=== PATIENT | male | born 2000 | race Caucasian/White ===

== ENCOUNTER → 2020-04-07 08:51 | Outpatient (BNVA) | payer OTHER, SELFPAY | PROVIDERS: Family Provider Nurse Practitioner Family; PCP Nurse Practitioner Family; Visit Provider Podiatrist Foot & Ankle Surgery | DX: M25.571 Pain in right ankle and joints of right foot (principal) | CPT/HCPCS: 73610 ==

== ENCOUNTER 2020-04-29 16:26 | Outpatient (CLI) | payer OTHER, SELFPAY ==
--- NOTE | 2020-04-29 16:35 | MR_ITS ---
WS: [id number] MRI RIGHT ANKLE NONCONTRAST TECHNIQUE: Sagittal proton density, sagittal STIR, axial proton density, axial T1, axial T2 fat sat, coronal proton density, coronal proton density fat sat, coronal T2 fat sat. CLINICAL INFORMATION: right ankel pain COMPARISON: None. FINDINGS: Normal ankle mortise. Normal medial and lateral malleolus. Talar dome is normal. No evidence of avasc ular necrosis. Normal bone marrow signal in the calcaneus. No acute avulsion fractures. Chronic avuls ion at the tip of the lateral malleolus. Distal Achilles is normal in appearance. Tenosynovitis involving the peroneal tendon sheath extending along the peroneus longus and brevis. Thickening involving the peroneal longus with increased signal consistent with tendinopathy and partial tear. Split tear involving the peroneal brevis. Extensor and flexor compartment tendons are otherwise normal.Normal navicular. Normal tarsal bones. S mall ankle joint effusion. ATF appears intact. MR/MR ankle RT wo con* [id number] IMPRESSION: 1. Normal ankle mortise. No acute fractures. Chronic avulsion at the tip of th e lateral malleolus. 2. Normal bone marrow signal in the talus and calcaneus. No avascular necrosis . 3. Partial tear with tendinopathy involving the peroneal longus. 4. Split tear involving the peroneal brevis with tenosynovitis involving the p eroneal tendon sheaths extending distally along the peroneal longus and brevis. 5. Distal Achilles appears normal. 6. ATF appears intact.
== END 2020-04-29 16:27 | disposition home or self-care (01) ==
PROVIDERS: PCP Nurse Practitioner Family; Visit Provider Podiatrist Foot & Ankle Surgery
DX: S96.811A Strain of other specified muscles and tendons at ankle and foot level, right foot, initial encounter (principal); X58.XXXA Exposure to other specified factors, initial encounter
CPT/HCPCS: 73721

== ENCOUNTER → 2021-08-30 14:50 | Outpatient (BNVA) | payer OTHER, SELFPAY | PROVIDERS: PCP Nurse Practitioner Family; Referring Provider Nurse Practitioner; Visit Provider Orthopaedic Surgery | DX: M54.9 Dorsalgia, unspecified (principal) | CPT/HCPCS: 72100 ==

== ENCOUNTER 2021-09-22 13:38 | Outpatient (CLI) | payer OTHER, SELFPAY ==
--- NOTE | 2021-09-22 14:00 | CT_ITS ---
WS: [id number] CT LUMBAR SPINE TECHNIQUE: Noncontrast CT of the lumbar spine with coronal and sagittal reformatted images. CLINICAL INFORMATION: back pain COMPARISON: None. DLP: 1317.[address] scans at [facility] use at least one of these dose optimization techniques: automated e xposure control; mA and/or kV adjustment per patient size (includes targeted exams where dose is matc hed to clinical indication); or iterative reconstruction. FINDINGS: Mild lumbar curve. No acute compression. Mild disc bulging L4-L5 and L5-S1. Bilateral pars defects L5 -S1. No significant anterolisthesis. L1-L2: Normal. L2-L3: Minimal annular bulging. Slight effacement of ventral thecal sac. Mild RIGHT foraminal narrowi ng. LEFT foramen is patent. L3-L4: Mild annular bulging. Slight effacement of ventral thecal sac. Mild facet arthropathy. Spinal canal and foramen are patent. L4-L5: Tiny shallow central protrusion with slight effacement of ventral thecal sac. Mild narrowing o f the subarticular recess bilaterally. LEFT eccentric disc bulging with mild LEFT foraminal narrowing . RIGHT foramen is patent. L5-S1: Tiny shallow disc protrusion. Spinal canal is patent. Foramen are patent. Bilateral pars defec ts. No significant anterolisthesis. Mild facet arthropathy. Adrenal glands are normal. Tiny riblet RIGHT L1. Visualized pelvic bony structures: Normal. Paravertebral soft tissues: Normal. CT/CT lumbar spine wo con* [id number] IMPRESSION: 1. Bilateral pars defects L5-S1. No significant anterolisthesis. Mild facet ar thropathy. 2. Tiny shallow central disc protrusion with slight effacement of ventral thec al sac. Mild LEFT L4-L5 foraminal narrowing. 3. Mild RIGHT L2-L3 foraminal narrowing.
== END 2021-09-22 13:39 | disposition home or self-care (01) ==
LOC: RAD 13:40
PROVIDERS: PCP Nurse Practitioner Family; Visit Provider Orthopaedic Surgery
DX: M54.9 Dorsalgia, unspecified (principal)
CPT/HCPCS: 72131

== ENCOUNTER 2021-10-21 08:46 | Outpatient (CLI) | payer OTHER, SELFPAY ==
--- NOTE | 2021-10-21 10:30 | NM_ITS ---
WS: [id number] NUCLEAR MEDICINE BONE SCAN Radiopharmaceutical: 22.3 Tc-99m MDP mCi IV Injection site antecubital Postinjection imaging delay: 1 hr CLINICAL INFORMATION: rule out pars fx COMPARISON: CT September 22, 2021 FINDINGS: Recent CT reviewed. Bilateral pars defects on the recent lumbar spine CT September 22, 2021. No significant anterolisthesis at that time. Bone lesions: Today's bone scan demonstrates no significant bony activity in the area of the L5-S1 pa rs defects. Normal activity in the lower lumbar spine and L5-S1. No suspicious areas of bony uptake. Soft tissue contours: Normal. Kidneys: Normal. Other findings: None. NM/NM bone scan whole body* [id number] IMPRESSION: No abnormal bone activity in the area of the L5-S1 pars defects. Normal activit y in the lower lumbar spine and L5-S1. No suspicious areas of bony uptake.
== END 2021-10-21 08:47 | disposition home or self-care (01) ==
LOC: RAD 08:50
PROVIDERS: PCP Nurse Practitioner Family; Visit Provider Physician Assistant
DX: M54.9 Dorsalgia, unspecified (principal)
CPT/HCPCS: 78306; A9561

== ENCOUNTER → 2022-04-11 16:28 | Outpatient (BNVA) | payer SELFPAY | PROVIDERS: PCP Nurse Practitioner Family; Visit Provider Nurse Practitioner Family | DX: J02.9 Acute pharyngitis, unspecified (principal); J06.9 Acute upper respiratory infection, unspecified | CPT/HCPCS: 87071; 87880 ==

== ENCOUNTER 2023-09-11 13:54 | Outpatient (CLI) | payer OTHER, SELFPAY ==
--- NOTE | 2023-09-11 14:01 | XR_ITS ---
WS: [id number] Exam: XR lumbar spine 2-3V* [id number] Date/Time of Exam: 09/11/2023 2:01 PM Reason For Exam: Back pain Comparison 08/30/2021. No fracture or dislocation noted. Disc spacer at L4-5. Pars interarticularis defect at L5 but no spon dylolisthesis. The remaining discs are preserved. Posterior elements are otherwise intact. Slight lev oscoliosis. XR/XR lumbar spine 2-3V* [id number] IMPRESSION: 1. Disc spacer at L4-5. 2. No fracture or malalignment. 3. Bilateral pars defect at L5 but no spondylolisthesis. Slight levoscoliosis.
== END 2023-09-11 13:55 | disposition home or self-care (01) ==
LOC: RAD 13:55
PROVIDERS: PCP Nurse Practitioner Family; Visit Provider Registered Nurse Neonatal Intensive Care
DX: M43.06 Spondylolysis, lumbar region (principal); Z96.698 Presence of other orthopedic joint implants
CPT/HCPCS: 72100

== ENCOUNTER 2024-03-26 12:48 | Emergency (ER) | payer OTHER, SELFPAY ==
[2024-03-26 12:54] VITALS: BP 137/85; PULSE 99; RESP 15; TEMP 36.6; O2SAT 97; BMI 33.5
--- NOTE | 2024-03-26 13:11 | XR_ITS ---
WS: [id number] Exam: XR hand LT min 3V* [id number] Date/Time of Exam: 03/26/2024 1:15 PM Reason For Exam: injury/pain at thumb/thenar eminence, previous fx of thumb No fracture noted. The joints are preserved. No soft tissue foreign bodies are noted. XR/XR hand LT min 3V* [id number] IMPRESSION: 1. Negative LEFT hand.
--- NOTE | 2024-03-26 13:12 | W.ED.EXTPRO ---
HPI - Extremity Problem General: Chief complaint: Extremity Injury, Upper Stated complaint: Left Thumb injury Time Seen by Provider: 03/26/24 13:08 Source: patient Mode of arrival: ambulatory Limitations: no limitations History of Present Illness: Patient is a 23-year-old male presenting to the emergency department with a left thumb injury occurring at approximately 0930 this morning. Patient works for [employer], states he was using a hook to open a box when it slipped and he believes that he hyperextended his left thumb although he states this all happened so fast he does not remember the exact mechanism. He does note a previous fracture of the thumb at the MCP, occurring many years ago but this did not require surgery. Pain specifically worse with range of motion at the MCP, he has difficulty with opposition of the thumb. No distal sensory changes reported. No open wounds. Also is noting the pain is radiating into the thenar eminence. MD Complaint: extremity pain and joint pain Pain Consistency: constant Location: left and upper extremity (Hand/thumb) Radiation: proximal Exacerbating factors: range of motion Associated symptoms: Deny chest pain, fever(s) or rash Related Data Previous Rx's Medication Instructions Recorded cyclobenzaprine 5 mg tablet 5 mg PO TID PRN muscle spasm #7 02/27/24 tabs Allergies Allergy/AdvReac Type Severity Reaction Status Date / Time No Known Allergies Allergy Verified 03/26/24 12:57 Review of Systems General: Reports: 10 or more systems reviewed and unremarkable except in HPI and below Const: Denies: fever(s) or chills Card: Denies: chest pain Resp: Denies: dyspnea or productive cough GI: Denies: abdominal pain, nausea, vomiting or diarrhea : Denies: flank pain Musc: Reports: extremity pain (Left thumb/hand) and limited range of motion; Denies: neck pain, back pain, extremity swelling, joint pain, joint swelling, joint redness, joint warmth or muscle weakness Skin/Breast: Denies: rash Neuro: Denies: headache(s), numbness in extremities or weakness in extremities PFSH ED PFSH: Social History Smoking and tobacco/nicotine status: never used tobacco/nicotine Alcohol intake: never Current occupational status: employed Current occupation: [employer] Physical Exam Const: COMMON NORMALS: no acute distress, patient oriented x3, no limitations, healthy appearing, alert and well nourished HENMT: COMMON NORMALS: normocephalic and atraumatic HEAD & SCALP: normocephalic and atraumatic Neck/C-Spine: COMMON NORMALS: full ROM, supple and no meningeal signs Extremity: COMMON NORMALS: normal to inspection, capillary refill normal, no joint enlargement and no clubbing, cyanosis or edema NARRATIVE EXTREMITY EXAM: No significant swelling of the left thumb or hand. He does have pretty moderate tenderness to palpation, worse over the left first MCP as well as into the thenar eminence/anatomical snuffbox. No significant bruising noted. Distal sensations intact. Pain with active range of motion with left thumb opposition, abduction/adduction, and flexion/extension Neuro: COMMON NORMALS: patient oriented x3, moves all extremities, no focal motor deficits and no sensory deficits noted SENSORIUM/ORIENTATION: Yes alert MENINGEAL SIGNS: Yes no meningeal signs Skin: COMMON NORMALS: no rashes or lesions noted GENERAL SKIN EXAM: no rashes or lesions noted Course Vital Signs: Vital signs: Vital Signs Temperature 97.8 F 03/26/24 12:54 Pulse Rate 99 03/26/24 12:54 Respiratory Rate 15 03/26/24 12:54 Blood Pressure 137/85 03/26/24 12:54 Pulse Oximetry 97 03/26/24 12:54 Oxygen Delivery Me thod Room Air 03/26/24 12:54 MDM - Extremity (Nontraumatic) Medical Decision Making Patient presented after injuring left hand, primary pain was reported over the left first MCP but did extend proximally into the hand, thenar eminence, scaphoid region. His x-ray was negative, however upon recheck was still moderately tender over the anatomical snuffbox/thenar eminence and cannot fully rule out scaphoid small fracture at this time. Thus he will be placed in a thumb spica splint and referred to orthopedics, as he does not have primary care to repeat imaging in a week's time. 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 Return precautions were given, all other questions and concerns addressed at this time. Patient's post splint neurovascular status is intact. Lab Data Radiology Impressions Hand X-Ray 03/26/24 13:11 IMPRESSION: 1. Negative LEFT hand. All radiology interpretation(s) finalized by discharge Discharge Plan Discharge Patient Disposition: Home Clinical Impression: Hand pain, left Condition: Stable Prescriptions: No Action cyclobenzaprine 5 mg tablet 5 mg PO TID PRN (Reason: muscle spasm) Qty: 7 0RF Discharge Orders: Discharge ED (Routine); Ordered 03/26/24 Ordered By: Jovany Chavez Referrals: Yajaira Oro, [facility] [Primary Care Provider] - Patient Instructions: Scaphoid Fracture (ED) Activity Restrictions/Additional Instructions: Follow-up with orthopedics to obtain repeat x-ray and fully rule out any fracture of the scaphoid or other surrounding structures. Alternate Tylenol and ibuprofen for pain, immobilization with a splint. If your pain continues to worsen, if you have any significant changes in sensations, or other concerning symptoms return to the emergency department. Work note is attached. Stand Alone Forms: Work/School Release Coding Level of Care Code ED [employer]
[2024-03-26 13:58] VITALS: BP 134/82; PULSE 88; O2SAT 97
== END 2024-03-26 13:59 | disposition home or self-care (01) ==
PROVIDERS: Emergency Provider Physician Assistant; PCP Nurse Practitioner Family
DX: M79.642 Pain in left hand (principal)
CPT/HCPCS: 73130; 99283